=== PATIENT | female | born 1950 | race Caucasian/White ===

== ENCOUNTER 2017-12-27 21:59 | Emergency (ER) | payer OTHER ==
[2017-12-27 22:05] VITALS: BMI 29.9
[2017-12-27] MEDS ORDERED: ASPIRIN 81 MG CHEWABLE TABLETS PO ONE (22:39)
[2017-12-27] MEDS ORDERED: ASPIRIN 81 MG CHEWABLE TABLETS ONE (22:58)
[2017-12-27 23:53] LABS: BASO % 0.8 % (0-2.0); EOS % 1.7 % (0-4.5); HEMATOCRIT 44.7 % (32.4-45.2); HEMOGLOBIN 14.7 GM/dL (10.7-15.3); LYMPH % 24.7 % (8-40); MCH 28.1 pg (25.7-33.7); MCHC 32.8 g/dl (32.0-36.0); MEAN CELL VOLUME 85.6 fl (80-96); MEAN PLT VOLUME 8.6 fl (7.5-11.1); NEUT % 67.8 % (42.8-82.8); PLATELET COUNT 236 K/MM3 (134-434); RBC 5.22 M/mm3 (3.60-5.2); RDW 14.1 % (11.6-15.6); WHITE BLOOD COUNT 9.5 K/mm3 (4.0-10.0)
[2017-12-28 00:04] LABS: INR 0.98 (0.83-1.09); PROTHROMBIN TIME (PATIENT) 11.1 SEC (9.7-13.0)
[2017-12-28 00:21] LABS: ALBUMIN 3.9 g/dl (3.4-5.0); ANION GAP 7 MMOL/L (8-16); BILIRUBIN,TOTAL 0.4 mg/dL (0.2-1); BLOOD UREA NITROGEN 21 mg/dL (7-18); CALCIUM 9.3 mg/dL (8.5-10.1); CO2 29 mmol/L (21-32); CREATININE 0.9 mg/dL (0.55-1.3); GLUCOSE,RANDOM 123 mg/dL (74-106); SGPT/ALT 40 U/L (13-61); SODIUM 142 mmol/L (136-145); TOT PROT 7.7 g/dl (6.4-8.2)
[2017-12-28 00:24] LABS: ALK PHOS 85 U/L (45-117)
[2017-12-28 00:26] LABS: CHLORIDE 106 mmol/L (98-107); MAGNESIUM 2.4 mg/dL (1.8-2.4); POTASSIUM 4.6 mmol/L (3.5-5.1)
[2017-12-28 00:27] LABS: SGOT/AST 34 U/L (15-37)
--- NOTE | 2017-12-28 00:44 | PDOC ---
History of Present Illness <Tha Mendiola - Last Filed: 12/28/17 00:59> - General History Source: Patient Exam Limitations: No Limitations - History of Present Illness Presenting Symptoms: Chest Pain Timing/Duration: reports: gone now Severity/Quality: reports: pressure Location: reports: substernal Chest Pain Radiation: reports: no radiation Activities at Onset: reports: none Prior Chest Pain/Cardiac Workup: reports: No prior chest pain Nitro Today/Relief: Yes: no nitro taken today Aspirin Received prior to arrival (Core Measure): Yes: 81 mg x 2, provided by ED Beta Cathie given by EMS (Core Measure): No Beta Cathie taken at Home (Core Measure): No Beta Cathie indicated at this time? (Core Measure): Yes (pt given lopressor) <Rachana Zhou - Last Filed: 12/29/17 02:41> - General Chief Complaint: Chest Pain Stated Complaint: CHEST PAIN Time Seen by Provider: 12/27/17 22:35 - History of Present Illness Initial Comments: 12/28/17 00:59 The patient is a 67 year old female, with a significant past medical history of HTN and acoustic neuroma (1984), who presents to the emergency department with, chest pain. As per patient, her symptoms onset this afternoon as a constant, non -radiating pain; now resolved. She reports associated shortness of breath. She denies recent fevers, chills, headache or dizziness. She denies recent nausea, vomit, diarrhea or constipation. She denies recent dysuria, frequency, urgency or hematuria. Allergies: NKA Past surgical history: Cholecystectomy, Hysterectomy, , Craniotomy ( acoustic neuroma) Social history: Nonsmoker. Denies EtOH use and recreational drug use. Primary Care Physician: Dr. Sanchez (Tha Mendiola) Past History <Tha Mendiola - Last Filed: 12/28/17 00:59> - Past Medical History COPD: No HTN: Yes - Immunization History Immunization Up to Date: Yes - Suicide/Smoking/Psychosocial Hx Smoking History: Never smoked Have you smoked in the past 12 months: No Information on smoking cessation initiated: No Hx Alcohol Use: No Drug/Substance Use Hx: No Substance Use Type: None <Rachana Zhou - Last Filed: 12/29/17 02:41> - Past Medical History Allergies/Adverse Reactions: Allergies Allergy/AdvReac Type Severity Reaction Status Date / Time No Known Allergies Allergy Verified 12/27/17 22:06 Home Medications: Ambulatory Orders Amlodipine Besylate [Norvasc -] 10 mg PO DAILY 11/10/14 Losartan Potassium 100 mg PO DAILY 11/10/14 Review of Systems - Review of Systems Able to Perform ROS?: Yes All Other Systems: Reviewed and Negative <Tha Mendiola - Last Filed: 12/28/17 00:59> <Rachana Zhou - Last Filed: 12/29/17 02:41> - Review of Systems Comments:: 12/28/17 00:59 CONSTITUTIONAL: Absent: fever, no chills, no fatigue EYES: Absent: visual changes ENT: Absent: ear pain, no sore throat CARDIOVASCULAR: Present: Chest pain. Absent: no palpitations RESPIRATORY: Absent: cough, no SOB GI: Absent: abdominal pain, no nausea, no vomiting, no constipation, no diarrhea GENITOURINARY: Absent: dysuria, no frequency, no hematuria MUSKULOSKELETAL: Absent: back pain, no arthralgia, no myalgia SKIN: Absent: rash NEURO: Absent: headache (Tha Mendiola) *Physical Exam <Tha Mendiola - Last Filed: 12/28/17 00:59> <Rachana Zhou - Last Filed: 12/29/17 02:41> - Vital Signs Last Vital Signs Temp Pulse Resp BP Pulse Ox 98.0 F 71 18 129/82 98 12/28/17 05:37 12/28/17 05:37 12/28/17 05:37 12/28/17 05:37 12/28/17 05:37 - Physical Exam Comments: 12/28/17 01:00 GENERAL: Well developed, well nourished. Awake and alert. No acute distress. HEENT: Normocephalic, atraumatic. PERRLA, EOMI. No conjunctival pallor. Sclera are non- icteric. Moist mucous membranes. Oropharynx is clear. NECK: Supple. Full ROM. No JVD. Carotid pulses 2+ and symmetric, without bruits. No thyromegaly. No lymphadenopathy. CARDIOVASCULAR: Regular rate and rhythm. No murmurs, rubs, or gallops. Distal pulses are 2+ and symmetric. PULMONARY: No evidence of respiratory distress. Lungs clear to auscultation bilaterally. No wheezing, rales or rhonchi. ABDOMINAL: Soft. Non-tender. Non-distended. No rebound or guarding. No organomegaly. Normoactive bowel sounds. MUSCULOSKELETAL Normal range of motion at all joints. No bony deformities or tenderness. No CVA tenderness. EXTREMITIES: No cyanosis. No clubbing. No edema. No calf tenderness. SKIN: Warm and dry. Normal capillary refill. No rashes. No jaundice. NEUROLOGICAL: Alert, awake, appropriate. Cranial nerves 2-12 intact. No deficits to light touch and temperature in face, upper extremities and lower extremities. No motor deficits in the in face, upper extremities and lower extremities. Normoreflexic in the upper and lower extremities. Normal speech. Toes are down- going bilaterally. Gait is normal without ataxia. PSYCHIATRIC: Cooperative. Good eye contact. Appropriate mood and affect. (Tha Mendiola) ED Treatment Course - LABORATORY CBC & Chemistry Diagram: 12/27/17 23:40 12/27/17 23:40 <Tha Mendiola - Last Filed: 12/28/17 00:59> - LABORATORY CBC & Chemistry Diagram: 12/27/17 23:40 12/27/17 23:40 <Rachana Zhou - Last Filed: 12/29/17 02:41> - ADDITIONAL ORDERS Additional order review: 12/27/17 23:40 RBC 5.22 H MCV 85.6 MCHC 32.8 RDW 14.1 MPV 8.6 Neutrophils % 67.8 Lymphocytes % 24.7 Monocytes % 5.0 Eosinophils % 1.7 Basophils % 0.8 - RADIOLOGY Radiology Studies Ordered: Category Date Time Status CHEST X-RAY PORTABLE* [RAD] Stat Radiology 12/27/17 22:40 Completed - Medications Given in the ED: ED Medications Discontinued Medications Generic Name Dose Route Start Last Admin Trade Name Freq PRN Reason Stop Dose Admin Al Hydroxide/Mg Hydroxide 30 ml 12/28/17 00:49 12/28/17 01:49 Mylanta Oral Suspension - PO 12/28/17 00:50 30 ml ONCE ONE Administration Aspirin 162 mg 12/27/17 22:39 12/27/17 22:58 Asa - PO 12/27/17 22:40 162 mg ONCE ONE Administration Famotidine/Sodium Chloride 20 mg in 50 mls @ 100 mls/hr 12/28/17 00:49 01:49 Pepcid 20 Mg Premixed Ivpb - IVPB 12/28/17 01:18 100 mls/hr ONCE ONE Administration Metoprolol Tartrate 25 mg 12/28/17 00:46 12/28/17 01:49 Lopressor - PO 12/28/17 00:47 25 mg ONCE ONE Administration Medical Decision Making <Tha Mendiola - Last Filed: 12/28/17 00:59> <Rachana Zhou - Last Filed: 12/29/17 02:41> - Medical Decision Making 12/28/17 00:47 67-year-old female who has complained of chest pressure that started at noon and was continuous until it stopped this evening. She is currently chest pain- free. She denies radiation to her neck or arms. He Past medical history is hypertension. Surgery for acoustic neuroma 1981, hysterectomy, , cholecystectomy. When she had a chest pressure. She felt short of breath. Currently, she has no chest pain 12/28/17 01:46 ekg is NSR @ 78 bpm with no signs of ischemia negative troponin cbc wnl 12/28/17 01:47 pt received ASA and b cathie (Rachana Zhou) *DC/Admit/Observation/Transfer <Tha Mendiola - Last Filed: 12/28/17 00:59> <Rachana Zhou - Last Filed: 12/29/17 02:41> Diagnosis at time of Disposition: Chest pain - Discharge Dispostion Disposition: HOME Condition at time of disposition: Improved - Referrals Referrals: Daryl Sanchez MD [Primary Care Provider] - - Patient Instructions Printed Discharge Instructions: DI for Atypical Chest Pain Additional Instructions: you 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 call to schedule. see referral for dr Figueroa , call to schedule. return for fever chills, recurrent pain or any concerns. all of your test today were negative including ekg, chest xray and labs to rule out a heart attack. - Post Discharge Activity - Attestations Scribe Attestion: 12/28/17 01:00 Documentation prepared by Tha Mendiola, acting as medical physics professor for Rachana Zhou MD. (Maury,Tha)
[2017-12-28] MEDS ORDERED: METOPROLOL TARTRATE 25 MG TABLET (FP) PO ONE (00:46)
[2017-12-28] MEDS ORDERED: FAMOTIDINE 20 MG/50 ML IVPB 20 MG/50 ML MG IVPB ONE ×2 (00:49→01:33)
[2017-12-28] MEDS ORDERED: MAG HYDROX/AL HYDROX/SIMETH 30 ML UNIT-DOSE CUP PO ONE (00:49)
[2017-12-28] MEDS ORDERED: METOPROLOL TARTRATE 25 MG TABLET (FP) ONE (01:32)
[2017-12-28] MEDS ORDERED: MAG HYDROX/AL HYDROX/SIMETH 30 ML UNIT-DOSE CUP ONE (01:33)
[2017-12-28 03:55] VITALS: TEMP 98
--- NOTE | 2017-12-28 05:27 | PDOC ---
*Physical Exam - Vital Signs Last Vital Signs Temp Pulse Resp BP Pulse Ox 98.0 F 72 18 129/91 98 12/28/17 03:00 12/28/17 03:00 12/28/17 03:00 12/28/17 03:00 12/28/17 03:00 - Physical Exam General Appearance: Yes: Appropriately Dressed HEENT: positive: Pharynx Normal, Lesions Respiratory/Chest: positive: Lungs Clear, Normal Breath Sounds Cardiovascular: positive: Regular Rhythm, Regular Rate, S1, S2 Heart Score/ECG Review #1 General ECG Interpretation: Sinus Rhythm, Normal Rate (78), Normal Intervals, No acute ischemic changes ED Treatment Course - LABORATORY CBC & Chemistry Diagram: 12/27/17 23:40 12/27/17 23:40 - ADDITIONAL ORDERS Additional order review: Laboratory Results 12/28/17 12/27/17 12/27/17 04:00 23:40 23:40 PT with INR INR Sodium 142 Potassium 4.6 Chloride 106 Carbon Dioxide 29 Anion Gap 7 L BUN 21 H Creatinine 0.9 Creat Clearance w eGFR > 60 Random Glucose 123 H Calcium 9.3 Magnesium 2.4 Total Bilirubin 0.4 AST 34 ALT 40 Alkaline Phosphatase 85 Creatine Kinase 316 H Creatine Kinase Index 0.9 CK-MB (CK-2) 3.01 Troponin I < 0.02 < 0.02 B-Natriuretic Peptide 44.29 Total Protein 7.7 Albumin 3.9 12/27/17 23:40 PT with INR 11.10 INR 0.98 Sodium Potassium Chloride Carbon Dioxide Anion Gap BUN Creatinine Creat Clearance w eGFR Random Glucose Calcium Magnesium Total Bilirubin AST ALT Alkaline Phosphatase Creatine Kinase Creatine Kinase Index CK-MB (CK-2) Troponin I B-Natriuretic Peptide Total Protein Albumin 12/27/17 23:40 RBC 5.22 H MCV 85.6 MCHC 32.8 RDW 14.1 MPV 8.6 Neutrophils % 67.8 Lymphocytes % 24.7 Monocytes % 5.0 Eosinophils % 1.7 Basophils % 0.8 - Medications Given in the ED: ED Medications Discontinued Medications Generic Name Dose Route Start Last Admin Trade Name Freq PRN Reason Stop Dose Admin Al Hydroxide/Mg Hydroxide 30 ml 12/28/17 00:49 12/28/17 01:49 Mylanta Oral Suspension - PO 12/28/17 00:50 30 ml ONCE ONE Administration Aspirin 162 mg 12/27/17 22:39 12/27/17 22:58 Asa - PO 12/27/17 22:40 162 mg ONCE ONE Administration Famotidine/Sodium Chloride 20 mg in 50 mls @ 100 mls/hr 12/28/17 00:49 01:49 Pepcid 20 Mg Premixed Ivpb - IVPB 12/28/17 01:18 100 mls/hr ONCE ONE Administration Metoprolol Tartrate 25 mg 12/28/17 00:46 12/28/17 01:49 Lopressor - PO 12/28/17 00:47 25 mg ONCE ONE Administration Medical Decision Making - Medical Decision Making 12/28/17 05:22 67 yo F with h/o HTN here with c/o chest pain began this am subsided prior to arrival. signed out to me at 2 am, awaiting second troponin plan to dc home. pt with negative troponin x 2. will follow up with pcp. dc to home. *DC/Admit/Observation/Transfer Diagnosis at time of Disposition: Chest pain - Discharge Dispostion Disposition: HOME Condition at time of disposition: Improved Decision to Admit order: No - Referrals Referrals: Daryl Sanchez MD [Primary Care Provider] - - Patient Instructions Printed Discharge Instructions: DI for Atypical Chest Pain Additional Instructions: you should follow up with a basket hand weaver. call to schedule. see referral for dr Figueroa , call to schedule. return for fever chills, recurrent pain or any concerns. all of your test today were negative including ekg, chest xray and labs to rule out a heart attack. - Post Discharge Activity
[2017-12-28 05:39] VITALS: BP 129/82; PULSE 71
--- NOTE | 2017-12-28 16:43 | EKG ---
Test Reason : Blood Pressure : / mmHG Vent. Rate : 078 BPM Atrial Rate : 078 BPM P-R Int : 176 ms QRS Dur : 072 ms QT Int : 368 ms P-R-T Axes : 024 023 005 degrees QTc Int : 419 ms NORMAL SINUS RHYTHM NORMAL ECG NO PREVIOUS ECGS AVAILABLE Confirmed by Cody Gonzalez ([id number]) on 12/28/2017 4:43:10 PM Referred By: Confirmed By:Cody Gonzalez
== END 2017-12-28 05:52 | disposition home or self-care (01) ==
LOC: JER 21:59 → EDBD 21:59 → JER 12-28 05:52
PROC: 3E033GC Introduction of Other Therapeutic Substance into Peripheral Vein, Percutaneous Approach (ICD-10-PCS; principal; 2017-12-27)
DX: R07.9 Chest pain, unspecified (principal); I10 Essential (primary) hypertension
CPT/HCPCS: 36415; 71045-TC-FY; 80053; 82550; 82553; 83735; 83880; 84484; 85025; 85610; 93005; 93010; 96365; 99284-25

== ENCOUNTER 2021-06-16 14:31 | Emergency (ER) | payer OTHER ==
[2021-06-16 14:50] VITALS: BP 149/82; PULSE 16; TEMP 97.8; BMI 29.7
[2021-06-16] MEDS ORDERED: MECLIZINE HCL 25 MG TABLET (FP) PO ONE (16:48)
[2021-06-16] MEDS ORDERED: METOCLOPRAMIDE HCL 10 MG TABLET (FP) PO ONE ×2 (16:49→17:51)
[2021-06-16] MEDS ORDERED: SODIUM CHLORIDE 500 ML IV STA (16:59)
[2021-06-16 17:14] LABS: BASO % 0.6 % (0-2.0); EOS % 1.5 % (0-4.5); HEMATOCRIT 46.3 % (32.4-45.2); HEMOGLOBIN 14.8 GM/dL (10.7-15.3); MCH 27.4 pg (25.7-33.7); MCHC 31.9 g/dl (32.0-36.0); MEAN CELL VOLUME 85.9 fl (80-96); MEAN PLT VOLUME 8.6 fl (7.5-11.1); MONO % 4.7 % (3.8-10.2); NEUT % 68.2 % (42.8-82.8); PLATELET COUNT 254 10^3/uL (134-434); RBC 5.39 M/mm3 (3.60-5.2); RDW 13.5 % (11.6-15.6); WHITE BLOOD COUNT 8.1 K/mm3 (4.0-10.0)
[2021-06-16 17:39] LABS: CALCIUM 10.1 mg/dL (8.5-10.1)
[2021-06-16 17:40] LABS: ALBUMIN 4.3 g/dl (3.4-5.0); BLOOD UREA NITROGEN 16.4 mg/dL (7-18)
[2021-06-16 17:43] LABS: CREATININE 1.1 mg/dL (0.55-1.3)
[2021-06-16 17:44] LABS: BILIRUBIN,TOTAL 0.8 mg/dL (0.2-1); TOT PROT 7.8 g/dl (6.4-8.2)
[2021-06-16] MEDS ORDERED: MECLIZINE HCL 25 MG TABLET (FP) ONE (17:51)
== END 2021-06-16 21:29 | disposition home or self-care (01) ==
LOC: JER 14:31
PROC: 3E0337Z Introduction of Electrolytic and Water Balance Substance into Peripheral Vein, Percutaneous Approach (ICD-10-PCS; principal; 2021-06-16)
DX: R42 Dizziness and giddiness (principal)
CPT/HCPCS: 36415; 70450-TC; 80053; 82962; 84484; 85025; 93005; 93010; 96360; 99285-25